=== PATIENT | male | born 1970 | race Caucasian/White ===

== ENCOUNTER 2017-08-10 19:27 | Emergency (ER) | payer SELFPAY ==
[2017-08-10 19:27] VITALS: BMI 22.6
[2017-08-10 19:52] VITALS: RESP 16; TEMP 98.2; O2SAT 100
[2017-08-10] MEDS ORDERED: Sodium Chloride 0.9% 1,000 ML IV STA (20:16)
--- NOTE | 2017-08-10 20:20 | ED PDOC ---
Arrival/HPI - General Chief Complaint: Dizziness/Lightheaded Time Seen by Provider: 08/10/17 20:07 Historian: Patient, Spouse, Event Management Consultant (Rodolfo Schaeffer) - History of Present Illness Narrative History of Present Illness (Text): 08/10/17 20:17 47 year old male with a history of diabetes presents to the emergency department complaining of dizziness- described as generalized fatigue, and non- bilious non-bloody vomiting x3 since earlier today. Patient is Burkinan speaking , history translated through scribe. Patient reports he woke up feeling fine, states his symptoms began shortly after dinner. Reports that he feels dehydrated and that he is worried his blood glucose is low. Denies chest pain, shortness of breath, abdominal pain, nausea, vomiting, diarrhea, constipation, fever, chills, urinary symptoms, back pain, neck pain, headache or any other complaints. Patient denies sick contact at home. 08/10/17 23:30 08/10/17 23:31 Time/Duration: Other (earlier today) Symptom Course: Unchanged Activities at Onset: Rest Context: Home Past Medical History - Provider Review Nursing Documentation Reviewed: Yes - Infectious Disease Hx of Infectious Diseases: None - Tetanus Immunization Tetanus Immunization: Unknown - Endocrine/Metabolic Hx Endocrine Disorders: (dx with diabetes 7 yras ago, pt takes glucophage, stopped insulin as per ) Hx Diabetes Mellitus Type 2: Yes - Musculoskeletal/Rheumatological Hx Falls: No - Psychiatric Hx Substance Use: No - Past Surgical History Past Surgical History: No Previous - Suicidal Assessment Feels Threatened In Home Enviroment: No Family/Social History - Physician Review Nursing Documentation Reviewed: Yes Family/Social History: Unknown Family HX Smoking Status: Never Smoked Hx Alcohol Use: Yes (social) Hx Substance Use: No Hx Substance Use Treatment: No Allergies/Home Meds Allergies/Adverse Reactions: Allergies No Known Allergies Allergy (Verified 08/10/17 19:52) Home Medications: Home Meds Medication Instructions Recorded Confirmed No Known Home Med 08/10/17 08/10/17 Review of Systems - Physician Review All systems were reviewed & negative as marked: Yes - Review of Systems Constitutional: Fatigue. absent: Fevers, Night Sweats Respiratory: absent: SOB, Cough, Sputum, Wheezing Cardiovascular: absent: Chest Pain, Palpitations, Edema, Calf Pain, WILLIS Gastrointestinal: Vomiting. absent: Abdominal Pain, Stool Changes, Constipation , Diarrhea, Nausea Genitourinary Male: absent: Dysuria Neurological: absent: Headache, Dizziness, Focal Weakness, Gait Changes, Speech Changes Physical Exam Vital Signs Reviewed: Yes Vital Signs Temp Pulse Resp BP Pulse Ox 08/10/17 22:34 70 16 142/82 100 08/10/17 19:46 98.2 F 68 16 156/97 H 100 Temperature: Afebrile Blood Pressure: Hypertensive Pulse: Regular Respiratory Rate: Normal Appearance: Positive for: Well-Appearing, Non-Toxic, Comfortable Pain Distress: None Mental Status: Positive for: Alert and Oriented X 3 Finger Stick Blood Glucose: 94 - Systems Exam Head: Present: Atraumatic, Normocephalic Pupils: Present: PERRL Extroacular Muscles: Present: EOMI Conjunctiva: Present: Normal Mouth: Present: Moist Mucous Membranes Neck: Present: Normal Range of Motion Respiratory/Chest: Present: Clear to Auscultation, Good Air Exchange. No: Respiratory Distress, Accessory Muscle Use Cardiovascular: Present: Regular Rate and Rhythm, Normal S1, S2. No: Murmurs Abdomen: Present: Normal Bowel Sounds. No: Tenderness, Distention, Peritoneal Signs Back: Present: Normal Inspection Upper Extremity: Present: Normal Inspection. No: Cyanosis, Edema Lower Extremity: Present: Normal Inspection. No: Edema Neurological: Present: GCS=15, CN II-XII Intact, Speech Normal Skin: Present: Warm, Dry, Normal Color. No: Rashes Psychiatric: Present: Alert, Oriented x 3, Normal Insight, Normal Concentration Medical Decision Making ED Course and Treatment: 08/10/17 20:18 Impression: 47 year old male presents to the emergency department complaining of fatigue and vomiting x3 today. Plan: -- Chest xray -- Labs -- Aspirin, IV fluids -- Reassess and disposition Progress Notes: EKG shows NSR at 64 BPM with isolated t-wave inversion in lead III, new from prior EKG. Interpreted by me. 08/10/17 22:02 On re-evaluation, patient feels better and is in no acute distress. I have discussed the results and plan with the patient, who expresses understanding. Patient in agreement with plan to be discharged home. He is tolerating po. He was made aware of ekg changes and will follow-up. Continues to deny chest pain or shortness of breath. Patient is stable for discharge. Patient was instructed to return if he develops chest pain, shortness of breath or new concerning symptoms arise. - Lab Interpretations Lab Results: 08/10/17 20:30 08/10/17 20:30 Lab Results 08/10/17 20:30: Troponin I < 0.01 08/10/17 20:30: pO2 157 H, VBG pH 7.39, VBG pCO2 50.0, VBG HCO3 30.3 H, VBG Total CO2 31.8 H, VBG O2 Sat (Calc) 98.7 H, VBG Base Excess 4.2 H, VBG Potassium 3.6, Sodium 139.0, Chloride 105.0, Glucose 104, Lactate 0.8, FiO2 21.0 , Venous Blood Potassium 3.6 08/10/17 20:30: Free T4 0.77 L, TSH 3rd Generation 1.81 08/10/17 20:30: Sodium 139, Chloride 102, Potassium 3.6, Carbon Dioxide 27, Anion Gap 13, BUN 12, Creatinine 0.8, Est GFR ( Amer) > 60, Est GFR (Non- Af Amer) > 60, Random Glucose 103, Calcium 9.4, Phosphorus 4.5, Magnesium 1.8, Total Bilirubin 0.4, AST 40, ALT 33, Alkaline Phosphatase 59, Total Protein 7.3 , Albumin 4.1, Globulin 3.1, Albumin/Globulin Ratio 1.3, Lipase 41 08/10/17 20:30: PT 11.9, INR 1.09 H, APTT 24.8 L 08/10/17 20:30: WBC 7.1 D, RBC 4.12, Hgb 12.7 L, Hct 36.4 L, MCV 88.3, MCH 30.8 , MCHC 34.9, RDW 12.1, Plt Count 191, MPV 10.4, Gran % 65.6, Lymph % (Auto) 27.3 , [place] % (Auto) 6.4 H, Eos % (Auto) 0.4 L, Baso % (Auto) 0.3, Gran # 4.64, Lymph # 1.9, [place] # 0.5, Eos # 0.0, Baso # 0.02 08/10/17 20:18: POC Glucose (mg/dL) 94 I have reviewed the lab results: Yes - RAD Interpretation Radiology Orders: 08/10/17 20:08 CHEST PORTABLE [RAD] Stat - Medication Orders Current Medication Orders: Discontinued Medications Aspirin (Aspirin Chewable) 324 mg PO STAT STA Stop: 08/10/17 20:12 Last Admin: 08/10/17 20:20 Dose: 324 mg Sodium Chloride (Sodium Chloride 0.9%) 1,000 mls @ 999 mls/hr IV .Q1H1M STA Stop: 08/10/17 21:16 Last Admin: 08/10/17 20:36 Dose: 999 mls/hr eMAR Start Stop Document 08/10/17 20:36 SC (Rec: 08/10/17 20:36 SC [id number]) Intravenous Solution Start Date 08/10/17 Start Time 20:36 End Date 08/10/17 End time 21:40 Total Infusion Time 64 - Scribe Statement The provider has reviewed the documentation as recorded by the Scribe Drew Dobbins All medical record entries made by the Scribe were at my direction and personally dictated by me. I have reviewed the chart and agree that the record accurately reflects my personal performance of the history, physical exam, medical decision making, and the department course for this patient. I have also personally directed, reviewed, and agree with the discharge instructions and disposition. Disposition/Present on Arrival - Present on Arrival Any Indicators Present on Arrival: No History of DVT/PE: No History of Uncontrolled Diabetes: No Urinary Catheter: No History of Decub. Ulcer: No History Surgical Site Infection Following: None - Disposition Have Diagnosis and Disposition been Completed?: Yes Diagnosis: Dehydration, Vomiting Disposition: HOME/ ROUTINE Disposition Time: 22:02 Patient Plan: Discharge Condition: GOOD Print Language: [place] Additional Instructions: Follow-up with PMD within 2 days. Return to ED if condition worsens. Your ekg has changed from prior and you need to follow-up with your PMD within 2 days Referrals: PCP,NO [Primary Care Provider] - Follow up with primary Forms: [employer] (Maldivian)
[2017-08-10 20:50] LABS: BASO # 0.02 K/mm3 (0.0-2.0); BASO % 0.3 % (0.0-3.0); EOS % 0.4 % (1.5-5.0); GRAN # 4.64 (1.4-6.5); GRAN % 65.6 % (50.0-68.0); HEMATOCRIT 36.4 % (42.0-52.0); LYMPH # 1.9 (1.2-3.4); LYMPH % 27.3 % (22.0-35.0); MEAN CELL VOLUME 88.3 fl (80.0-105.0); MEAN CORPUSCULAR HEMOGLOBIN 30.8 pg (25.0-35.0); MEAN CORPUSCULAR HGB CONC 34.9 g/dl (31.0-37.0); MEAN PLATELET VOLUME 10.4 fl (7.0-11.0); MONO # 0.5 (0.1-0.6); MONO % 6.4 % (1.0-6.0); RED CELL DISTRIBUTION WIDTH 12.1 % (11.5-14.5); WHITE BLOOD COUNT 7.1 10^3/ul (4.5-11.0)
[2017-08-10 20:53] LABS: VENOUS BLOOD GAS BASE EXCESS 4.2 mmol/L (0.0-2.0); VENOUS BLOOD PH 7.39 (7.32-7.43)
[2017-08-10 21:04] LABS: INR 1.09 (0.93-1.08); PARTIAL THROMBOPLASTIN TIME 24.8 Seconds (25.1-36.5)
[2017-08-10 21:07] LABS: ALB/GLOB RATIO 1.3 (1.1-1.8); ALKALINE PHOSPHATASE 59 U/L (38-126); ALT/SGPT 33 U/L (7-56); AST/SGOT 40 U/L (17-59); BILIRUBIN,TOTAL 0.4 mg/dL (0.2-1.3); BLOOD UREA NITROGEN 12 mg/dL (7-21); CALCIUM 9.4 mg/dL (8.4-10.5); CARBON DIOXIDE 27 mmol/L (21-33); CHLORIDE 102 mmol/L (98-107); GFR AFRICAN-AMERICAN > 60; GLUCOSE,RANDOM 103 mg/dL (70-110); LIPASE 41 U/L (23-300); MAGNESIUM 1.8 mg/dL (1.7-2.2); PHOSPHOROUS 4.5 mg/dL (2.5-4.5); POTASSIUM 3.6 mmol/L (3.6-5.0); SODIUM 139 mmol/L (132-148); TOTAL PROTEIN 7.3 g/dL (5.8-8.3)
[2017-08-10 21:23] LABS: FREE T4 0.77 ng/dL (0.78-2.19)
[2017-08-10 21:37] LABS: THYROID STIMULATING HORMONE 1.81 mIU/mL (0.46-4.68)
[2017-08-10 22:34] VITALS: BP 142/82; PULSE 70
--- NOTE | 2017-08-11 08:05 | RAD ---
HISTORY: fatigue COMPARISON: Comparison is made to 09/27/2012 FINDINGS: LUNGS: No active pulmonary disease. PLEURA: No significant pleural effusion identified, no pneumothorax apparent. CARDIOVASCULAR: Normal. OSSEOUS STRUCTURES: No significant abnormalities. VISUALIZED UPPER ABDOMEN: Normal. OTHER FINDINGS: None. IMPRESSION: No active disease.
--- NOTE | 2017-08-11 11:49 | CARD ---
APPROVED REPORT EKG Measurement Heart [id number] <Conclusion> Normal sinus rhythm Moderate voltage criteria for LVH, may be normal variant No change except the rate is slower.
== END 2017-08-10 22:35 | disposition home or self-care (01) ==
LOC: ED 19:27
DX: E86.0 Dehydration (principal); R11.10 Vomiting, unspecified; E11.9 Type 2 diabetes mellitus without complications
CPT/HCPCS: 71010; 80053; 82803; 82948; 83690; 83735; 84100; 84439; 84443; 84484; 85025; 85610; 85730; 93005; 96360; 99285; J7040